=== PATIENT | female | born 1990 | race Caucasian/White ===

== ENCOUNTER 2018-08-11 07:20 | Day surgery (SDC) | payer BC ==
[2018-08-10 14:26] VITALS: BMI 48.4
[2018-08-11] MEDS ORDERED: Lactated Ringer's 500 ML IV ONE ×2 (09:53)
--- NOTE | 2018-08-11 09:56 | CP.SDSHP ---
Same Day Surgery H & P - History Proposed Procedure: endoscopy and biopsy Pre-Op Diagnosis: epig pain, GI bleed - Previous Medical/Surgical History Endocrine/Metabolic: Obesity - Allergies Allergies: Allergies SEAFOOD Allergy (Severe, Uncoded 08/11/18 07:46) ANAPHYLAXIS - Physical Exam Vital Signs: Vital Signs 08/11/18 08/11/18 07:30 08:16 Temperature 98.4 F Pulse Rate 72 72 Respiratory 19 Rate Blood Pressure 133/77 O2 Sat by Pulse 98 Oximetry Mental Status: Alert & Oriented x3 Neuro: WNL Heart: WNL Lungs: WNL GI: WNL - {Optional Preform as Required} Abdomen: WNL - Impression Impression: gastritis Pt. Evaluated Today:Candidate for Anesthesia & Procedure: Yes - Date & Time Date: 08/11/18 Time: 09:45 Short Stay Discharge - Short Stay Discharge Admitting Diagnosis/Reason for Visit: EPIGASTRIC PAIN Disposition: HOME/ ROUTINE
[2018-08-11] MEDS ORDERED: Midazolam 2 MG/2 ML VIAL ONE (10:00)
[2018-08-11] MEDS ORDERED: Propofol 10 mg/ml Inj (20 ML) ONE (10:00)
[2018-08-11 10:38] VITALS: TEMP 97.8; O2SAT 100
[2018-08-11 12:29] VITALS: RESP 14
[2018-08-11 12:34] VITALS: BP 120/83; PULSE 72
== END 2018-08-11 11:40 | disposition home or self-care (01) ==
LOC: C.ENDO 07:20
PROVIDERS: ATTEND Internal Medicine Gastroenterology
DX: R10.84 Generalized abdominal pain (principal); K20.9 Esophagitis, unspecified; K44.9 Diaphragmatic hernia without obstruction or gangrene
CPT/HCPCS: 43239; 84703; 88305; J2001; J2250; J2704; J3010; J7120